=== PATIENT | male | born 1970 | race Caucasian/White ===

== ENCOUNTER 2018-03-04 18:23 | Emergency (ER) | payer MEDICAID ==
[~2018-03-04] VITALS: Ht 177.8 cm; Wt 79.4 kg
--- NOTE | 2018-03-04 18:25 | NUR ---
alberta 89 from home accompanied by [employer] for suicidal ideation with a plan to hang himself, patient is on 5150 DTS. patient is alert but with flight of ideas. Unable to focus on conversation. vitals stable. safety and comfort measures in place. awaiting md orders.
--- NOTE | 2018-03-04 18:55 | NUR ---
roof technician at bedside for blood draw. patient not cooperative in providing urine at this time. will f/u.
[2018-03-04 19:00] LABS: BASOPHILS # (AUTO) 0.1 /CMM (0.0-0.2); BASOPHILS % (AUTO) 1.8 % (0.0-2.0); EOSINOPHILS % (AUTO) 0.1 % (0.0-6.0); HEMATOCRIT 49 % (39-51); HEMOGLOBIN 16.5 g/dL (13.5-17.5); LYMPHOCYTES # (AUTO) 1.1 /CMM (0.8-4.8); LYMPHOCYTES % (AUTO) 17.7 % (20.0-44.0); MEAN CORPUSCULAR HGB CONC 34 g/dl (31.0-36.0); MEAN CORPUSCULAR VOLUME 93 fL (80-96); MONOCYTES # (AUTO) 0.3 /CMM (0.1-1.30); MONOCYTES % (AUTO) 4.7 % (2.0-12.0); NEUTROPHILS # (AUTO) 4.9 /CMM (1.8-8.9); NEUTROPHILS % (AUTO) 75.7 % (43.0-81.0); PLATELET COUNT (AUTO) 181 /CMM (150-450); RDW COEFFICIENT OF VARIATION 12.9 (11.5-15.0); RED BLOOD CELL COUNT(AUTO) 5.31 MIL/uL (4.5-6.0); WHITE BLOOD COUNT (AUTO) 6.4 K/uL (4.3-11.0)
[2018-03-04 19:11] LABS: CALCIUM, SERUM 9.4 mg/dL (8.5-10.1); CREATININE 1.4 mg/dL (0.6-1.3); POTASSIUM 4.2 mmol/L (3.5-5.1)
[2018-03-04 19:17] LABS: ALBUMIN 4.5 g/dL (3.4-5.0); BILIRUBIN,DIRECT 0.2 mg/dL (0.0-0.2); BILIRUBIN,TOTAL 1.1 mg/dL (0.2-1.0); SALICYLATE 1.3 mg/dL (2.8-20.0); TOTAL PROTEIN, SERUM 7.8 g/dL (6.4-8.2)
--- NOTE | 2018-03-04 19:19 | NUR ---
RECIEVED REPORT FROM MER ALEJANDRE FOR MEAGHAN. PT RESTING IN BED WITH BILATERAL RESTRAINT APPLIED PER MD. PT RESTING IN BED WITH NO S/S OF DISTRESS NOTED. WATER,FOOD,AND TOILETTING OFFERED TO PT. WILL CONTINUE TO MONITOR PT. SI PRECAUTIONS IN PLACE.
--- NOTE | 2018-03-04 19:45 | NUR ---
Patient is resting comfortably in bed with eyes closed. Easily aroused. VSS
[2018-03-04] MEDS ORDERED: OLANZAPINE 5 MG TABLET ONE (19:56)
[2018-03-04] MEDS ORDERED: OLANZAPINE 5 MG TABLET PO ONE (20:00)
[2018-03-04 20:32] LABS: APPEARANCE,URINE Slightly Cloudy (CLEAR); BILIRUBIN,URINE Negative (NEGATIVE); BLOOD, URINE Negative Ery/uL (NEGATIVE); COLOR,URINE Yellow (YELLOW); KETONES,URINE 15 (NEGATIVE); LEUKOCYTE ESTERASE ,URINE Negative (NEGATIVE); NITRITE, URINE Negative (NEGATIVE); PROTEIN,URINE Negative (NEGATIVE); UGLUCOSE Negative (NEGATIVE); UROBILINOGEN,URINE 0.2 EU/dL (0.2)
[2018-03-04 20:49] LABS: BACTERIA,URINE Few /HPF (None Seen); HYALINE CASTS, URINE Few /LPF (None Seen); MUCUS,URINE Few /LPF (None Seen); RBC,URINE 0-2 /HPF (0-2); SQUAMOUS EPITHELIAL CELL,UR Few /HPF (None Seen); WBC,URINE 0-2 /HPF (0-3)
--- NOTE | 2018-03-04 21:09 | NUR ---
Patient is resting comfortably in bed with eyes closed. Easily aroused. VSS. PT'S FAMILY BEDSIDE .
[2018-03-04] MEDS ORDERED: LORAZEPAM 1 MG TABLET ONE (22:29)
[2018-03-04] MEDS ORDERED: LORAZEPAM 1 MG TABLET PO ONE (22:30)
--- NOTE | 2018-03-04 22:32 | NUR ---
Lula DEL ANGEL platen press feeder at bedside for eval.
--- NOTE | 2018-03-04 22:56 | NUR ---
PT'S FAMILY NO LONGER BEDSIDE. PT RESTING IN BED WITH NO S/S OF DISTRESS NOTED. WILL CONTINUE TO MONITOR PT FOR SAFETY.
--- NOTE | 2018-03-04 23:17 | NUR ---
DOUG AND OH SHER (PARENTS): HOME: [phone] CELL: [phone] CELL: [phone]
--- NOTE | 2018-03-04 23:23 | NUR ---
Patient is resting comfortably in bed with eyes closed. Easily aroused. VSS. WILL COTNINUE TO MONITOR PT FOR SAFETY
--- NOTE | 2018-03-05 00:02 | NUR ---
Pt accepted to [facility] by Dr Burgess. # for report [phone].
--- NOTE | 2018-03-05 00:14 | NUR ---
SPOKE WITH [facility] FOR S TRANSPORT TRIP#[id number] MINUTES ETA.
--- NOTE | 2018-03-05 00:41 | NUR ---
REPORT GIVEN TO INDUSTRIAL SAFETY AND HEALTH TECHNICIANMER KHAN FOR MEAGHAN.
--- NOTE | 2018-03-05 01:00 | NUR ---
Patient is resting comfortably in bed with eyes closed. Easily aroused. VSS
--- NOTE | 2018-03-05 01:19 | NUR ---
PT'S RESTRAINTS REMOVED PER PSYCHAITRIC EVALUATORS AND MD'S ORDERS
[2018-03-05 02:45] VITALS: BP 145/88
--- NOTE | 2018-03-05 02:49 | NUR ---
REPORT GIVEN TO EMS CREW FOR MEAGHAN. NO S/S OF DISTRESS NOTED UPON TRANSFER.
--- NOTE | 2018-03-05 02:50 | NUR ---
Patient Tranfers to outside Facility Physician: Dr Burgess Location:[facility]
== END 2018-03-05 02:53 ==
LOC: ER 18:25
DX: R45.851 Suicidal ideations (principal); F29 Unspecified psychosis not due to a substance or known physiological condition; F15.10 Other stimulant abuse, uncomplicated; F32.9 Major depressive disorder, single episode, unspecified; D66 Hereditary factor VIII deficiency; F19.10 Other psychoactive substance abuse, uncomplicated; F43.10 Post-traumatic stress disorder, unspecified; F10.10 Alcohol abuse, uncomplicated; Y90.1 Blood alcohol level of 20-39 mg/100 ml; Z98.890 Other specified postprocedural states; Z60.2 Problems related to living alone
CPT/HCPCS: 36415; 71045; 80048; 80076; 80305; 80329; 81001; 85025; 99285; A4606; G0480 ×2; Z7610; 81000-TC

== ENCOUNTER 2018-06-05 09:27 | Inpatient (IN) | payer MEDICAID ==
[~2018-06-05] VITALS: Ht 175.3 cm; Wt 78.5 kg
[~2018-06-05 09:27] MED LIST: BUDE10.2 IH; BUPR300T52 PO; FAMO-131 PO; FINA5TAB11 PO; QUET25TA PO; SILD20TA2 PO; TADA5TAB2 PO; [UNRECOGNIZED DRUG - CODE] IV
--- NOTE | 2018-06-05 09:30 | NUR ---
RN NOTES PT BIB [facility] DUE TO SUICIDAL IDEATION,PT STATES "TRIED TO HANG MYSELF", PT AO X4, NOT IN RESPIRATORY DISTRESS. PT HAS NOTED REDNESS TO NECK AND HAS ELEVATED BP, WILL CONTINUE TO MONITOR.
--- NOTE | 2018-06-05 09:30 | NUR ---
URINAL GIVEN BUT PT UNABLE TO PROVIDE URINE SPECIMEN.
--- NOTE | 2018-06-05 09:35 | NUR ---
DR MORAN AT BEDSIDE FOR EVAL
--- NOTE | 2018-06-05 10:02 | NUR ---
LABS DRAWN AND SENT TO LAB, AWAITING RESULTS
[2018-06-05 10:09] LABS: BASOPHILS % (AUTO) 0.3 % (0.0-2.0); HEMATOCRIT 52 % (39-51); HEMOGLOBIN 17.9 g/dL (13.5-17.5); LYMPHOCYTES # (AUTO) 1.1 /CMM (0.8-4.8); LYMPHOCYTES % (AUTO) 14.6 % (20.0-44.0); MEAN CORPUSCULAR HGB CONC 34 g/dl (31.0-36.0); MEAN CORPUSCULAR VOLUME 95 fL (80-96); MONOCYTES # (AUTO) 0.3 /CMM (0.1-1.30); MONOCYTES % (AUTO) 3.8 % (2.0-12.0); NEUTROPHILS # (AUTO) 6.3 /CMM (1.8-8.9); NEUTROPHILS % (AUTO) 81.3 % (43.0-81.0); PLATELET COUNT (AUTO) 156 /CMM (150-450); RED BLOOD CELL COUNT(AUTO) 5.52 MIL/uL (4.5-6.0); WHITE BLOOD COUNT (AUTO) 7.8 K/uL (4.3-11.0)
[2018-06-05 10:17] LABS: CALCIUM, SERUM 9.4 mg/dL (8.5-10.1); CREATININE 1.4 mg/dL (0.6-1.3); POTASSIUM 4.3 mmol/L (3.5-5.1)
[2018-06-05 10:23] LABS: ALBUMIN 4.7 g/dL (3.4-5.0); BILIRUBIN,DIRECT 0.2 mg/dL (0.0-0.2); BILIRUBIN,TOTAL 0.8 mg/dL (0.2-1.0); SALICYLATE 1.2 mg/dL (2.8-20.0)
[2018-06-05] MEDS ORDERED: IV NS 0.9% 1,000 ML BAG IV ONE (10:30)
[2018-06-05] MEDS ORDERED: IV NS 0.9% 250 ML IV ONE (10:36)
[2018-06-05] MEDS ORDERED: IOHEXOL-300 100 ML VIAL IV ONE (10:36)
[2018-06-05] MEDS ORDERED: CT SWABBABLE VALVE TRANS SET 1 EA INFUS.SET MC ONE (10:36)
--- NOTE | 2018-06-05 10:48 | NUR ---
PT IS WHEELD TO CT SCAN VIA [employer].
--- NOTE | 2018-06-05 11:56 | NUR ---
PT ADMIT TO 306-1 TELE DX SUICIDAL ATTEMPT, R/O NECK SWELLING [id number] MD DONAHUE
--- NOTE | 2018-06-05 12:04 | NUR ---
REPORT GIVEN TO MER MURRAY FOR MEAGHAN, STILL FOR URINE SPECIMEN COLLECTION.
[2018-06-05] MEDS ORDERED: LORAZEPAM INJ 2 MG/ML VIAL IV STA ×2 (12:08→13:02)
[2018-06-05] MEDS ORDERED: LORAZEPAM INJ 2 MG/ML VIAL ONE ×2 (12:12→13:17)
[2018-06-05 12:27] LABS: APPEARANCE,URINE Clear (CLEAR); BILIRUBIN,URINE Negative (NEGATIVE); BLOOD, URINE Negative Ery/uL (NEGATIVE); COLOR,URINE Yellow (YELLOW); KETONES,URINE Trace (NEGATIVE); LEUKOCYTE ESTERASE ,URINE Negative (NEGATIVE); NITRITE, URINE Negative (NEGATIVE); PH,URINE 5.5 (5.0-8.0); PROTEIN,URINE Negative (NEGATIVE); UGLUCOSE Negative (NEGATIVE); UROBILINOGEN,URINE 0.2 EU/dL (0.2)
--- NOTE | 2018-06-05 12:30 | NUR ---
URINE COLLECTED AND SENT TO LAB.
[2018-06-05 12:36] LABS: BACTERIA,URINE None seen /HPF (None Seen); RBC,URINE 0-2 /HPF (0-2); SQUAMOUS EPITHELIAL CELL,UR Rare /HPF (None Seen); WBC,URINE 0-2 /HPF (0-3)
[2018-06-05 12:37] LABS: CALCIUM CARBONATE CRYSTALS,UR Few /HPF (None Seen)
[2018-06-05 14:00] VITALS: BP 156/105
--- NOTE | 2018-06-05 14:30 | NUR ---
Tele/RN - Admission Received patient from ER, alert and oriented x 3-4, denies chest pain or palpitation, stable on room air, tele shows ST. Admitted for Acute Encephalopathy; Suicide Ideation and attempt under the care of Laura Gilliland NP. Patient oriented to room, all belongings sent home. Saline lock on the RAC is patent and intact. Patient refused photo to be taken of skin, noted with redness around the neck. Patient on suicide watch, 1:1 sitter at bedside. Admission orders noted and carried out. Will continue to monitor and intervene as needed. Father at bedside updated on plan of care.
[2018-06-05] MEDS: THIAMINE HCL 100 MG TABLET PO SCH (14:43)
[2018-06-05] MEDS: FOLIC ACID 1 MG TABLET PO SCH (14:43)
[2018-06-05] MEDS: CHLORDIAZEPOXIDE HCL 25 MG CAPSULE PO SCH ×2 (14:43→20:15)
[2018-06-05 16:00] VITALS: BP 159/109
[2018-06-05] MEDS: FAMOTIDINE (20 MG) 20 MG TABLET PO SCH (16:46)
[2018-06-05] MEDS: SILDENAFIL CITRATE 20 MG TABLET PO SCH (16:46)
[2018-06-05] MEDS: Potassium Chloride 20 MEQ in IV D5/ 0.9% NACL 1,000 ML IV PRN (16:47)
--- NOTE | 2018-06-05 18:15 | NUR ---
Tele/RN - Closing notes No significant change in condition noted, ST on the monitor, IVF D5NS with 20 meq KCl at 150 ml/hr infusing well on the right AC with no signs of infiltration. 1:1 sitter at bedside for safety. No seizure activity seen. Fall suicide and seizure precautions maintained. All needs attended and met. Will continue with current medical management.
--- NOTE | 2018-06-05 19:20 | NUR ---
RN OPENING NOTES PT AWAKE AND RESTING IN BED. 1:1 SITTER AT BEDSIDE. PT TELE MONITORED ST RATE IN THE 120S. PT HAS A RIGHT AC #18 RUNNING D5 NS + 20MEQ KCL @150ML/HR. SAFETY PRECAUTIONS IN PLACE, BED IN LOWEST LOCKED POSITION, X2 SIDE RAILS UP AND CALL LIGHT WITHIN REACH. WILL CONTINUE TO MONITOR.
[2018-06-05 20:00] VITALS: BP 148/108
[2018-06-05] MEDS: OLANZAPINE 2.5 MG TABLET PO SCH (20:14)
[2018-06-05 20:53] VITALS: BP 148/108
[2018-06-05] MEDS ORDERED: BUDE10.22 INH (22:01)
[2018-06-05] MEDS ORDERED: ALBU8.5H8 INH (22:01)
[2018-06-06 00:21] VITALS: BP 121/80
[2018-06-06] MEDS: Potassium Chloride 20 MEQ in IV D5/ 0.9% NACL 1,000 ML IV PRN ×2 (04:04→15:15)
[2018-06-06] MEDS: CHLORDIAZEPOXIDE HCL 25 MG CAPSULE PO SCH ×3 (04:04→20:20)
[2018-06-06 04:45] VITALS: BP_SYST 130; BP_DIAS 92; BP_DIAS 97
[2018-06-06] MEDS: LORAZEPAM INJ 2 MG/ML VIAL IV PRN ×2 (05:18→10:17)
--- NOTE | 2018-06-06 05:29 | NUR ---
RN NOTES PT REQUESTED PRN ATIVAN. ADMINISTERED WILL CONTINUE TO MONITOR.
--- NOTE | 2018-06-06 06:25 | NUR ---
RN CLOSING NOTES PT AWAKE AND RESTING IN BED. 1:1 SITTER AT BEDSIDE. PT TELE MONITORED SR RATE IN 80S. PT HAS A RIGHT AC #18 RUNNING D5 NS + 20MEQ KCL @150ML/HR. ALL PATIENT NEEDS MET OVERNIGHT. SAFETY PRECAUTIONS IN PLACE, BED IN LOWEST LOCKED POSITION, X2 SIDE RAILS UP AND CALL LIGHT WITHIN REACH. WILL ENDORSE TO DAY SHIFT NURSE FOR CONTINUITY OF CARE.
[2018-06-06 08:00] VITALS: BP 126/88
--- NOTE | 2018-06-06 08:00 | NUR ---
rn notes received patient in the bed a/o x3, tele sr-80, patient has no acute respiratory distress, anxious, get irritable easily. encouraged to express feelings and concerns. patient refused SI/HI at this time. Scheduled mediation administered, v/s stable,. IV access on right ac area intact infusing D5NS with KCL 20 mEq 150ml/hr intact, no infiltration. Patient ambulatory self care. 1:1 sitter next to the bed for safety, call light within to reach, safety precaution maintained all the time.
[2018-06-06] MEDS: SILDENAFIL CITRATE 20 MG TABLET PO SCH ×2 (08:26→17:08)
[2018-06-06] MEDS: OLANZAPINE 2.5 MG TABLET PO SCH ×3 (08:26→20:19)
[2018-06-06] MEDS: FAMOTIDINE (20 MG) 20 MG TABLET PO SCH ×2 (08:26→17:08)
[2018-06-06] MEDS: FOLIC ACID 1 MG TABLET PO SCH (08:26)
[2018-06-06] MEDS: THIAMINE HCL 100 MG TABLET PO SCH (08:26)
[2018-06-06] MEDS: FINASTERIDE (5 MG) 5 MG TABLET PO SCH (08:26)
[2018-06-06] MEDS ORDERED: FLUTICASONE/VILANTEROL 1 EACH BLST.W.DEV IH SCH (09:00)
--- NOTE | 2018-06-06 10:17 | NUR ---
rn notes patient anxious, get irritable, administered Ativan 1 mg/ml iv push per patient request, v/s taken bp- 126/88, p-87, continued monitoring.
[2018-06-06 11:53] LABS: BASOPHILS % (AUTO) 0.4 % (0.0-2.0); EOSINOPHILS % (AUTO) 0.6 % (0.0-6.0); HEMATOCRIT 46 % (39-51); HEMOGLOBIN 15.4 g/dL (13.5-17.5); LYMPHOCYTES # (AUTO) 1.1 /CMM (0.8-4.8); MEAN CORPUSCULAR HGB CONC 33 g/dl (31.0-36.0); MEAN CORPUSCULAR VOLUME 95 fL (80-96); MONOCYTES # (AUTO) 0.3 /CMM (0.1-1.30); MONOCYTES % (AUTO) 5.1 % (2.0-12.0); NEUTROPHILS # (AUTO) 3.6 /CMM (1.8-8.9); NEUTROPHILS % (AUTO) 71.9 % (43.0-81.0); PLATELET COUNT (AUTO) 124 /CMM (150-450); RED BLOOD CELL COUNT(AUTO) 4.87 MIL/uL (4.5-6.0); WHITE BLOOD COUNT (AUTO) 5.1 K/uL (4.3-11.0)
[2018-06-06 11:58] LABS: CALCIUM, SERUM 8.3 mg/dL (8.5-10.1); CREATININE 1.1 mg/dL (0.6-1.3); PHOSPHORUS 2.7 mg/dL (2.5-4.9); POTASSIUM 3.9 mmol/L (3.5-5.1)
--- NOTE | 2018-06-06 13:00 | NUR ---
RN NOTES PATIENT RESTING IN THE BED , NO ACUTE DISTRESS, 1:1 SITTER NEXT TO THE BED FOR SAFETY, CONTINUED MONITORING.
--- NOTE | 2018-06-06 14:54 | NUR ---
Social service consult requested by JOHANA Gilliland for suicidal attempt. Pt. is a 47 year old male who was admitted to [facility] for a suicidal attempt by hanging himself. Pt. has been to [facility] ER in the past for the same reasons. Pt. is currently on a 5150 hold and has a sitter bedside. SW met with the pt. bedside. Pt. is alert and oriented by 4. Pt's appearance is clean. Pt's mood is congruent. Pt. resides alone at [address] [place] [address]. Pt's emergency contact is his brother Domingo Durbin . Pt. states that he went outside to the [facility] and wrapped a cord around his neck. He states that he jumped " a little bit" which caused the cord to exert some pressure on his neck but he had no loss of consciousness. Pt. stated that he called his dad and told him to go back inside and that he went inside and called police. Pt. has had prior hospitalizations for multiple suicidal attempts in the past. Pt. is an alcoholic and drinks a bottle of vodka per day. Pt. stated he was drinking prior to hanging himself. Pt. also takes amphetamines. Pt. last used yesterday. Pt's last psychiatric admission was three months ago at [facility]. Pt. states he has been sober before and attended [facility] and [facility]. Pt. is currently not feeling suicidal at this time but states, he usually does when he feels a sense of hopelessness. SW inquired with pt. if he will be willing to go voluntary for psychiatric admission. Pt. states, he will think about it. Pt. has a history of Depression. Pt's psychiatrist is Dr. Adan Kearns in [place] but he hasn't been consistent in getting to see him. Pt. is interested in getting SSDI due to his mental illness. SW to give pt. list of Social Security offices in [facility] and referrals to mental health clinics in [facility] prior to discharge. No other social service needs are requested at this time. SW to follow up with pt. again tomorrow.
[2018-06-06 17:00] VITALS: BP 126/77
[2018-06-06] MEDS: PROAIR INH SCH (17:10)
[2018-06-06] MEDS: SYMBICORT INH SCH (17:10)
--- NOTE | 2018-06-06 18:07 | NUR ---
patient was admitted for suicidal attempt by hanging himself, he is currently on 5150 hold. He lives locally alone. He is ambulatory and independent with adl's. He had prior hospitalizations for multiple suicidal attempts in the past. Patient is an alcoholic and drinks a bottle of vodka per day. He stated he was drinking prior to hanging himself. He also takes amphetamines - last used yesterday. His last psychiatric admission was three months ago at [facility]. Patient states he has been sober before and attended [facility] and [facility]. States he is not suicidal at this time but states, he usually does when he feels a sense of hopelessness. metalworker inquired with patient if he will be willing to go voluntary for psychiatric admission. States he will think about it. He has a history of Depression, his psychiatrist is Dr. Adan Kearns in [place] but he hasn't been consistent in getting to see him. Patient interested in getting SSDI due to his mental illness. SW to give pt. list of Social Security offices in [facility] and referrals to mental health clinics in [facility] prior to discharge. No other social service needs are requested at this time. SW to follow up with pt. again tomorrow. Addendum: 06/06/18 at 1807 by KENROY LARES RN Amended: Links added.
--- NOTE | 2018-06-06 18:30 | NUR ---
RN NOTES PATIENT STABLE WALKING AROUND. SCHEDULED MEDICATION ADMINISTERED, PATIENT DENIED SI/HI AT TIS TIME. 1:1 SITTER NEXT TO THE BED FOR SAFETY. ENDORSED ONCOMING NURSE FOR PLAN OF CARE.
--- NOTE | 2018-06-06 19:57 | NUR ---
MS/RN RECEIVE PATIENT AWAKE, ALERT, ORIENTED, COMFORTABLE, NO C/O PAIN, NO DISTRESS NOTED, CALL LIGHT IN REACH. WILL MONITOR.
--- NOTE | 2018-06-06 20:00 | NUR ---
MS/RN PATIENT REFUSED IV FLUID.
[2018-06-06 20:07] VITALS: BP 120/85
--- NOTE | 2018-06-07 02:43 | NUR ---
MS/RN PATIENT IS SLEEPING AT THIS TIME, APPEAR COMFORTABLE, BREATHING EVEN AND UNLABORED, CALL LIGHT IN REACH. WILL CONTINUE TO MONITOR.
[2018-06-07] MEDS: CHLORDIAZEPOXIDE HCL 25 MG CAPSULE PO SCH ×3 (05:21→21:27)
[2018-06-07 06:37] LABS: BASOPHILS % (AUTO) 0.4 % (0.0-2.0); EOSINOPHILS % (AUTO) 1.5 % (0.0-6.0); HEMATOCRIT 45 % (39-51); HEMOGLOBIN 15.1 g/dL (13.5-17.5); LYMPHOCYTES # (AUTO) 1.6 /CMM (0.8-4.8); MEAN CORPUSCULAR HGB CONC 34 g/dl (31.0-36.0); MEAN CORPUSCULAR VOLUME 94 fL (80-96); MONOCYTES # (AUTO) 0.3 /CMM (0.1-1.30); MONOCYTES % (AUTO) 5.4 % (2.0-12.0); NEUTROPHILS # (AUTO) 2.7 /CMM (1.8-8.9); NEUTROPHILS % (AUTO) 58.7 % (43.0-81.0); PLATELET COUNT (AUTO) 107 /CMM (150-450); RED BLOOD CELL COUNT(AUTO) 4.75 MIL/uL (4.5-6.0); WHITE BLOOD COUNT (AUTO) 4.7 K/uL (4.3-11.0)
--- NOTE | 2018-06-07 06:44 | NUR ---
MS/RN PATIENT STILL SLEEPING AT THIS TIME, APPEAR COMFORTABLE, BREATHING EVEN AND UNLABORED, CALL LIGHT IN REACH. ALL NEEDS ATTENDED AT THIS TIME. WILL CONTINUE TO MONITOR.
[2018-06-07 07:05] LABS: CALCIUM, SERUM 8.2 mg/dL (8.5-10.1); MAGNESIUM 1.8 mg/dL (1.8-2.4); PHOSPHORUS 3.3 mg/dL (2.5-4.9); POTASSIUM 3.7 mmol/L (3.5-5.1)
--- NOTE | 2018-06-07 07:21 | NUR ---
MS RN OPENING NOTES RECEIVED PATIENT AWAKE IN BED IN NO ACUTE SIGNS OF DISTRESS. 1:1 SITTER AT BEDSIDE. A/O X4. ABLE TO VERBALIZED NEEDS, NO C/O PAIN OR DISCOMFORTS VOICED AT THIS TIME. DENIES HI/SI. ON ROOM AIR, BREATHING EVEN AND UNLABORED. IV ACCESS ON RFA INTACT AND PATENT, REFUSING IVF OF D5 NS. SAFETY MEASURES IN PLACE. BED IN LOW/LOCKED POSITION WITH SR UP X2. CALL LIGHT IN REACH. WILL CONTINUE TO MONITOR PT ACCORDINGLY.
[2018-06-07 08:00] VITALS: BP 133/55
[2018-06-07] MEDS: OLANZAPINE 2.5 MG TABLET PO SCH ×4 (08:35→21:27)
[2018-06-07] MEDS: FINASTERIDE (5 MG) 5 MG TABLET PO SCH (08:35)
[2018-06-07] MEDS: THIAMINE HCL 100 MG TABLET PO SCH (08:35)
[2018-06-07] MEDS: SILDENAFIL CITRATE 20 MG TABLET PO SCH ×2 (08:36→18:22)
[2018-06-07] MEDS: FAMOTIDINE (20 MG) 20 MG TABLET PO SCH ×3 (08:36→18:22)
[2018-06-07] MEDS: FOLIC ACID 1 MG TABLET PO SCH ×2 (08:36→09:00)
[2018-06-07] MEDS: PROAIR INH SCH ×2 (08:37→18:24)
[2018-06-07] MEDS: SYMBICORT INH SCH ×2 (08:37→18:25)
--- NOTE | 2018-06-07 10:33 | NUR ---
SERINA received a message from JOHANA Sanchez informing SW that pt. is wanting to leave AMA. SERINA and MER Dorado met with pt. bedside. Pt. appears anxious and was sitting on his bed talking on the phone requesting to bring his clothes to the hospital. SERINA inquired with pt. as to why he wants to leave AMA. Pt. stated he was agitated with the doctor and doesn't want to be here anymore. SERINA reiterated with the pt. that he is on a 5150 hold and is not able to leave AMA. SERINA provided emotional support and informed pt. that a psychiatrist will be seeing him today. Pt. stated, " no one told me I am on a hold." SERINA informed the pt. that [employer] placed him on a hold on 06/05/18 when they had brought him to [facility] ED. Pt. seemed to be calmer than earlier. SERINA updated JOHANA Sanchez and Med Surg 3 VARINDER Robb with the aforementioned information.
--- NOTE | 2018-06-07 10:40 | NUR ---
RN NOTES JOHANA DONAHUE CAME TO SEE PT, INFORMED HER THAT PT IS REFUSING HIS IVF BUT DRINKING WELL. PT BECAME AGITATED AFTER JOHANA DONAHUE LEFT HIS ROOM AND VERBALIZED THAT HE WANTS TO GO AMA. INFORMED BY SERINA ALEX AND Airam THAT HE IS ON HOLD 5150 ON 06/05/2018 BY [employer] AND APPEARS TO CALM DOWN AFTER. WILL CONTINUE TO MONITOR
--- NOTE | 2018-06-07 12:14 | NUR ---
RN NOTES PATIENT VISITED BY FEMALE NAMED LAY AND INTRODUCED HERSELF AN EMPLOYEE OF THE PATIENT AND BROUGHT 1 BAG OF CLOTHINGS( 1 PAINT, 1 SHIRT, 1M SWEATER, 1 UNDERWEAR, PAIR OF SOCKS AND 1 PAIR OF SHOES. NO CONTRABAND NOTED. BELONGINGS LIST UPDATED. WILL CONTINUE TO MONITOR.
--- NOTE | 2018-06-07 14:28 | NUR ---
RN NOTES PATIENT WAS PLACED ON 5250 HOLD STARTING TODAY, 06/07/2017. COPY OF NOTICE OF CERTIFICATION GIVEN AND EXPLAINED TO PT. WILL CONTINUE TO MONITOR .
[2018-06-07 16:00] VITALS: BP 127/78
--- NOTE | 2018-06-07 18:55 | NUR ---
MS RN CLOSING NOTES PATIENT IN BED RESTING @ MODERATE HIGH BACKREST POSITION. 1:1 SITTER AT BEDSIDE FOR CLOSE MONITORING. A/O X4. AMBULATORY AND VERBALLY RESPONSIVE, DENIES HI/SI DURING THE DAY. ALL NEEDS AND CARE ATTENDED WELL. ON ROOM AIR, BREATHING EVEN WITH NO SOB NOTED. IV ACCESS ON RFA INTACT AND PATENT, PT REMAINS REFUSING IVF. ALL SAFETY MEASURES KEPT IN PLACE. BED IN LOW/LOCKED POSITION WITH SR UP X2. CALL LIGHT IN REACH. WILL ENDORSE TO LEARNING ANALYST NURSE FOR MEAGHAN.
--- NOTE | 2018-06-07 19:25 | NUR ---
RN NOTES PATIENT SUPPOSED TO TAKE HIS ZYPREXA 2.5 TAB AT 1800, REVATIO 20 MG TAB AND PEPCID 20MG TAB AT 1700 AFTER WAKING UP BUT REFUSED TO TAKE IT UNTIL HE IS FULLY AWAKE. MEDS SCANNED THAT HE TOOK IT ALREADY BUT I UNDONE IT BECAUSE PT DOESN'T WANT TO WAKE UP YET TO TAKE HIS MEDS. FATHER AT BEDSIDE AND MADE AWARE. THE THREE MEDS WAS RETURNED AND WITNESSED BY MER ROUSE. ENDOSED TO NIGHT NURSE SAKINA.
--- NOTE | 2018-06-07 19:37 | NUR ---
MS/RN RECEIVE PATIENT APPEAR SLEEPING, APPEAR COMFORTABLE, NO DISTRESS NOTED, SITTER AT BEDSIDE. WILL MONITOR.
[2018-06-07 20:00] VITALS: BP 122/72
--- NOTE | 2018-06-08 00:46 | NUR ---
MS/RN PATIENT IS SLEEPING AT THIS TIME, APPEAR COMFORTABLE, NO SIGNS OF DISTRESS NOTED, CALL LIGHT IN REACH. WILL CONTINUE TO MONITOR.
[2018-06-08] MEDS: CHLORDIAZEPOXIDE HCL 25 MG CAPSULE PO SCH ×3 (05:17→21:20)
--- NOTE | 2018-06-08 07:06 | NUR ---
MS/RN PATIENT IS AWAKE, ALERT ORIENTED, CALM AND COMFORTABLE, NO SIGNS OF DISTRESS NOTE, NO UNTOWARD BEHAVIOR PROBLEM NOTED THE WHOLE SHIFT, ALL NEEDS ATTENDED AT THIS TIME, WILL CONTINUE TO MONITOR.
--- NOTE | 2018-06-08 08:00 | NUR ---
MS/RN AM NOTES PATIENT COMFORTABLY SLEEPING BUT AROUSABLE, REFUSED VITAL SIGNS TO BE TAKEN.REFUSED TO BE BOTHERED.DENIES DISTRESS., REFUSED IVF INSPITE OF EXPLAINING ITS RISKS AND BENEFITS.INFORMED DR MONTESINOS WITH ORDERS TO DC IVF SINCE PT DRINKS FINE.NO SI/HI.WITH 1:1 SITTER.WILL CONTINUE TO MONITOR.
[2018-06-08] MEDS: FAMOTIDINE (20 MG) 20 MG TABLET PO SCH ×3 (08:20→17:20)
[2018-06-08] MEDS: FOLIC ACID 1 MG TABLET PO SCH ×2 (08:20→09:00)
[2018-06-08] MEDS: OLANZAPINE 2.5 MG TABLET PO SCH ×5 (08:20→21:20)
[2018-06-08] MEDS: THIAMINE HCL 100 MG TABLET PO SCH ×2 (08:20→09:00)
[2018-06-08] MEDS: FINASTERIDE (5 MG) 5 MG TABLET PO SCH ×2 (08:20→09:00)
[2018-06-08] MEDS: SILDENAFIL CITRATE 20 MG TABLET PO SCH ×3 (08:24→17:20)
[2018-06-08] MEDS: SYMBICORT INH SCH ×2 (08:29→17:00)
[2018-06-08] MEDS: PROAIR INH SCH ×2 (08:30→17:00)
--- NOTE | 2018-06-08 13:46 | NUR ---
PT WOKE UP AND ATE HIS LUNCH 100%.REFUSED TO TAKE HIS AM PILLS AND JUST WANTS TO GO HOME.PT IS ON HOLD.UNCOOPERATIVE AND NON COMPLIANT.WITH 1:1 SITTER AT BEDSIDE.
--- NOTE | 2018-06-08 14:00 | NUR ---
PT REFUSED V/S.PT ANSWERS WITH SARCASM AND RAISES HIS VOICE FOR SIMPLE QUESTIONS.WANTS TO BE ADDRESSED NicciCHRISTOS.SLAMS THE DOOR OF HIS RESTROOM.
[2018-06-08 16:00] VITALS: BP 113/68
--- NOTE | 2018-06-08 17:27 | NUR ---
PT TOOK HIS PM ORAL MEDS EXCEPT THE INHALERS.PT CALM AND COOPERATIVE AT THIS TIME.
--- NOTE | 2018-06-08 19:36 | NUR ---
MS RN NOTE RECEIVED PT IN STABLE CONDITON. PATIENT COMFORTABLY SLEEPING BUT AROUSABLE. SO SIGNS OF SOB OR DISTRESS. NO SI/HI.WITH 1:1 SITTER.WILL CONTINUE TO MONITOR. SAFETY MEASURES IN PLACE: BED LOW AND LOCKED POSITION, UPPER BED RAILS UP X2 AND CALL LIGHT WITHIN REACH. WILL CONT TO MONITOR.
[2018-06-08 19:51] VITALS: BP 114/71
[2018-06-08 20:00] VITALS: BP 114/71
[2018-06-09] MEDS: CHLORDIAZEPOXIDE HCL 25 MG CAPSULE PO SCH ×4 (05:26→20:07)
--- NOTE | 2018-06-09 06:17 | NUR ---
MS RN NOTE PT IN STABLE CONDITON. PATIENT COMFORTABLY SLEEPING BUT AROUSABLE. SO SIGNS OF SOB OR DISTRESS. NO SI/HI.WITH 1:[address] SITTER. SAFETY MEASURES IN PLACE: BED LOW AND LOCKED POSITION, UPPER BED RAILS UP X2 AND CALL LIGHT WITHIN REACH. WILL CONT TO MONITOR AND ENDORSE TO NEXT SHIFT.
[2018-06-09 08:00] VITALS: BP 117/69
--- NOTE | 2018-06-09 08:00 | NUR ---
MS RN OPENING NOTE PATIENT COMFORTABLY SLEEPING AT THIS TIME WITH BED LOCKED IN LOWEST POSITION WITH SIDERAILS UP x2. NO FACIAL GRIMACING NOTED FOR PAIN. NO SOB OR DISTRESS NOTED ON ROOM AIR TOLERATING WELL. ALERT AND ORIENTED X4. BRP. IV ON RIGHT FOREARM INTACT AND PATENT NO REDNESS OR SWELLING NOTED WITH NO IV FLUIDS. AWAITING FOR PSYCH EVAL AND FOR PSYCH MD TO CALL PATIENT'S MOTHER ONCE AVAILABLE. ON 5250 HOLD EXPIRES 06/21/18. PER BLOW MOULDING MACHINE OPERATOR NURSE FOR PATIENT NOT TO BE DISTURBED. WILL CONTINUE TO MONITOR THROUGHOUT SHIFT
--- NOTE | 2018-06-09 08:20 | NUR ---
MS RN NOTE PER DR. HILL PATIENT HAS DISCHARGE ORDER AND TO NOTIFY CLAM TREADER FOR TRANSFER TO [facility]. CHARGE NURSE AWARE
--- NOTE | 2018-06-09 08:25 | NUR ---
MS RN NOTE NOTIFIED [facility] PARCEL POST CLERK-HONEY THAT PATIENT IS AWAITING PSYCH EVAL. DR HINTON TO BE NOTIFIED TO SEE PATIENT
[2018-06-09] MEDS: FAMOTIDINE (20 MG) 20 MG TABLET PO SCH ×2 (08:42→17:00)
[2018-06-09] MEDS: THIAMINE HCL 100 MG TABLET PO SCH (08:42)
[2018-06-09] MEDS: FINASTERIDE (5 MG) 5 MG TABLET PO SCH (08:42)
[2018-06-09] MEDS: SILDENAFIL CITRATE 20 MG TABLET PO SCH ×2 (08:42→17:00)
[2018-06-09] MEDS: OLANZAPINE 2.5 MG TABLET PO SCH ×5 (08:42→20:07)
[2018-06-09] MEDS: FOLIC ACID 1 MG TABLET PO SCH (08:43)
[2018-06-09] MEDS: PROAIR INH SCH ×2 (08:44→17:00)
[2018-06-09] MEDS: SYMBICORT INH SCH ×2 (08:44→17:00)
--- NOTE | 2018-06-09 12:48 | NUR ---
ms rn noteupone giving medications, patient refused. then patient changed his mind and said " well i dont want the doctor thinking i dont take the medications, just give them to me". medication given to patient. will inform md
[2018-06-09 16:00] VITALS: BP 112/66
--- NOTE | 2018-06-09 17:17 | NUR ---
MS RN NOTE PATIENT REFUSED MEDICATION AT THIS TIME. PATIENT STATED " I DONT WANT TO BE BOTHERED WHEN IM SLEEPING"
--- NOTE | 2018-06-09 18:34 | NUR ---
MS RN CLOSING NOTE PATIENT COMFORTABLE IN BED AT THIS TIME WITH BED LOCKED IN LOWEST POSITION WITH SIDERAILS UP x2. NO FACIAL GRIMACING NOTED FOR PAIN. NO SOB OR DISTRESS NOTED ON ROOM AIR TOLERATING WELL. ALERT AND ORIENTED X4. BRP. CALL LIGHT WITHIN REACH AT ALL TIMES. IV ON RIGHT FOREARM INTACT AND PATENT NO REDNESS OR SWELLING NOTED WITH NO IV FLUIDS. ALL DUE MEDICATIONS GIVEN ORDERED-PATIENT REFUSED AFTERNOON MEDICATIONS. ON 5250 HOLD EXPIRES 06/21/18. PATIENT STATED " I DONT WANT TO BE DISTURBED WHILE SLEEPING, I JUST WANT TO GO HOME" WILL ENDORSE TO HOT PIPE GAUGER NURSE FOR MEAGHAN
--- NOTE | 2018-06-09 19:31 | NUR ---
MS RN OPENING NOTES: RECEIVED PT ON ROOM AIR AND IS TOLERATING WELL. PT ASLEEP AT HIS TIME. NO SOB OR S/S OF DISTRESS NOTED AT THIS TIME. SITTER AT BEDSIDE. IV REMAINS INTACT. CURRENTLY H/L. BED KEPT IN LOW ,LOCKED POSITION, AND SIDE RAILS X 2UP. WILL CONTINUE TO MONITOR PT.
--- NOTE | 2018-06-09 19:53 | NUR ---
MS RN NOTES: PT REQUESTING NOT TO HAVE ANY PHONE CALLS FROM FAMILY TRANSFERRED TO HIM FOR EVENING. PT WOULD LIKE PRIVACY.
[2018-06-09 20:00] VITALS: BP 123/73
--- NOTE | 2018-06-09 20:09 | NUR ---
MS RN NOTES: NO SI IDEATIONS AT THIS TIME. PT GIVEN MARINA CRACKERS AND CRANBERRY JUICE REQUESTED.
--- NOTE | 2018-06-09 20:16 | NUR ---
MS RN CLOSING NOTES: ALL NEEDS WERE ATTENDED AND ANTICIPATED FOR. PT IN STABLE CONDITION. ENDORSED TO ELVIN DEL ANGEL FOR MEAGHAN.
[2018-06-10] MEDS: CHLORDIAZEPOXIDE HCL 25 MG CAPSULE PO SCH ×3 (05:13→20:52)
--- NOTE | 2018-06-10 06:22 | NUR ---
MS RN NOTES PT SLEEPING. EASILY AROUSABLE. NOT IN ANY DISTRESS. NO SOB NOTED. DENIES ANY PAIN OR DISCOMFORT AT THIS TIME. MONITORED ACCORDINGLY FOR BEHAVIOR AND SAFETY. SLEPT FOR 8 HRS. CALL LIGHT WITHIN REACH. BED IN LOWEST POSITION. SR UP X 3 WITH BED ALARM ON FOR SAFETY. WITH SITTER AT BEDSIDE. WILL ENDORSE TO NEXT SHIFT.
--- NOTE | 2018-06-10 07:42 | NUR ---
MS RN OPENING NOTE RECEIVED PATIENT ASLEEP IN BED WITH SIDERAILS UP x3 FOR SAFETY. NO FACIAL GRIMACING NOTED FOR PAIN. NO SOB OR DISTRESS NOTED AT THIS TIME ON ROOM AIR TOLERATING WELL. CALL LIGHT WITHIN REACH. IV INTACT AND PATENT ON RIGHT FOREARM NO IV FLUIDS AT THIS TIME. AWAITING PSYCH PLACEMENT. WILL CONTINUE TO MONITOR THROUGHOUT SHIFT
[2018-06-10 08:00] VITALS: BP 119/80
--- NOTE | 2018-06-10 09:30 | NUR ---
MS RN NOTE PATIENT'S HOME SERVICE CONSULTANT AT BEDSIDE AT THIS TIME LOOKING FOR PATIENTS HOME [place]HARI. INFORM HOME SERVICE CONSULTANT THAT ANY BELONGINGS OF PATIENT WERE SENT HOME WITH FAMILY
[2018-06-10] MEDS: FINASTERIDE (5 MG) 5 MG TABLET PO SCH (10:42)
[2018-06-10] MEDS: OLANZAPINE 2.5 MG TABLET PO SCH ×4 (10:42→20:51)
[2018-06-10] MEDS: THIAMINE HCL 100 MG TABLET PO SCH (10:42)
[2018-06-10] MEDS: FOLIC ACID 1 MG TABLET PO SCH (10:42)
[2018-06-10] MEDS: FAMOTIDINE (20 MG) 20 MG TABLET PO SCH ×2 (10:42→17:00)
[2018-06-10] MEDS: SILDENAFIL CITRATE 20 MG TABLET PO SCH ×2 (10:42→17:00)
--- NOTE | 2018-06-10 10:42 | NUR ---
MS RN NOTE PATIENT DIDNT WANT TO BE BOTHERED EARLIER THIS MORNING. MORNING MEDICATIONS NOW GIVEN
[2018-06-10] MEDS: SYMBICORT INH SCH ×2 (10:43→17:00)
[2018-06-10] MEDS: PROAIR INH SCH ×2 (10:43→17:00)
--- NOTE | 2018-06-10 11:26 | NUR ---
SERINA contacted Intake for [facility] and spoke to the regulatory compliance coordinator who informed SERINA they should have bed available after 3PM. She requested for SERINA to fax clinicals. SER[facility] . SERINA also gave copy of clinicals to Luis Miguel to fax to central intake for psychiatric placement. Addendum: 06/10/18 at 1431 by ISAI SMALLS SERINA received a call back from Rishi in intake stating that they will not be able to accept pt. until a PC hearing is held.
--- NOTE | 2018-06-10 13:15 | NUR ---
MS RN NOTE 1:1 KINSEY INFORMED ME THAT PATIENT WAS GRABBING ITEMS OUT OF BAG. HE SAW HIM WITH PAPER TOWELS AROUND HIS WRIST, I WENT TO ASSESS PATIENT WHEN I NOTICED HE WAS GIVING HIMSELF MEDICATION. I EXPLAINED TO HIM THAT HE CANNOT INJECT MEDICATION TO HIMSELF WHILE IN THE HOSPITAL AND WHILE BEING ON 5250 HOLD. PATIENT THEN BEGAN TO GET AGITATED STATING " I HAVE RIGHTS HERE ARE MY DOCUMENTS YOU CAN LOOK AT THEM AND I HAVE THE RIGHT TO GIVE MYSELF MY OWN DAMN MEDICATION" I INFORMED OUR CHARGE NURSE WHERE SHE CAME INTO THE ROOM AND STARTED TALKING TO THE PATIENT. MR. SHER THEN BEGAN YELLING AND SHOUTING AT MYSELF AND CHARGE NURSE IN REGARDS TO HIS CARE, NOT HAVING A PRIVATE ROOM, AND STATING " THE PSYCHIATRIST DIDNT TALK TO ME IN PRIVATE OR EVEN SPEAK TO ME" WE EXPLAINED THAT THE PSYCH MD SPOKE WITH PATIENT REGARDING HOLD. INFORMED DR ALMENDAREZ AWAITING TO HEAR CALL BACK
--- NOTE | 2018-06-10 13:31 | NUR ---
SERINA spoke to Dr. Jeffries who informed SERINA that [facility] does not take pt's who have attempted suicide by hanging themselves.
[2018-06-10] MEDS ORDERED: OLANZAPINE 10 MG VIAL IM ONE (14:00)
--- NOTE | 2018-06-10 14:10 | NUR ---
MS RN NOTE PER ERICKSON TO GIVE ONE TIME ORDER OF ZYPREXA 10 MG IM FOR AGITATION. ORDER NOTED AND CARRIED OUT
--- NOTE | 2018-06-10 14:28 | NUR ---
SERINA met with pt's guidance secretary(pt's calls her a friend) Leo who informed SW that she is his guidance secretary and has been for the past three years. Leo informed SW that pt. called her asking him to inform the staff that " it is safe for him to go home." Leo informed SW that she informed pt. she is not able to do that. She contacted pt's father Domingo who is out of town and will see the pt. when he is back in . A. SERINA gave Leo her contact information and requested her to call if she has any concerns or questions.
--- NOTE | 2018-06-10 15:17 | NUR ---
SERINA received a call from [facility] VARINDER Lozano informing that pt's PC hearing is held for tomorrow at 9AM. SERINA informed VARINDER Murry of PC hearing. VARINDER Murry informed she will send pt. tomorrow to [facility] accompanied with a nurse and security. VARINDER Murry also gave contact number for both parents Addendum: 06/10/18 at 1541 by ISAI SMALLS Mother Marielena Durbin cellphone and is available by text. Jae, pt's father . Both parents are in [place] for two months but are available by phone or email. Mother's email is and father's email is .
--- NOTE | 2018-06-10 17:16 | NUR ---
ms rn note incident report done for patient Unique Id: [id number]
--- NOTE | 2018-06-10 18:11 | NUR ---
MS RN NOTE PATIENT REFUSED 1700 MEDS.
--- NOTE | 2018-06-10 18:44 | NUR ---
MS RN CLOSING NOTE PATIENT RESTING COMFORTABLY AT THIS TIME IN BED LOCKED IN LOWEST POSITION WITH SIDERAILS UP x2 FOR SAFETY. 1:1 SITTR AT BEDSIDE FOR SAFETY. ALL DUE MEDICATIONS GIVEN ORDERED. ALL NURSING CARE NEEDS ATTENDED TO. NO IV ACCESS PATIENT REMOVED IV. NO FACIAL GRIMACING NOTED FOR PAIN. NO SOB OR DISTRESS NOTED ON ROOM AIR TOLERATING WELL. CALL LIGHT WITHIN REACH AT ALL TIMES. WILL ENDORSE TO DISTRICT MANAGER NURSE FOR MEAGHAN
--- NOTE | 2018-06-10 19:30 | NUR ---
recieving notes: asleep liying on his side, reap evemn and unlabored. noted when i left the room he got oob and ambulated quickly to the bathroom, noted steady on his legs. sitter at the bed side. stated he had a BM. noted he ate 100% of his dinner. He asked me what time he was to see the Accounting Consultant. Answered him, I was informed that tomorrow you would see the Accounting Consultant only the date was given me, no time. He did ask me twice. Same answer given. toook his night medication w/o problems.
[2018-06-10 20:35] VITALS: BP 125/83
[2018-06-11] MEDS: CHLORDIAZEPOXIDE HCL 25 MG CAPSULE PO SCH ×4 (04:40→20:03)
--- NOTE | 2018-06-11 06:40 | NUR ---
ENDING NOTES: SLEPT 9 HOURS OF THIS 12 HOUR SHIFT. CHILDS. AT TIMES HE WILL SAY THANKYOU, AND THEN AT TIMES HE'LL TELL YOU HE WANTS NOTHING AND GET OUT, AND i JUST WANT TO GET OUT OF HERE, KNOW ONE TOLD ME i'D BE ON A HOLD. AMBULATES TO THE BATHROOM AND NOTED HIS MOVEMENTS ARE FAST AND ABRUPT. REFUSED HIS AM LIBRIUM DOSE. SPEECH CLEAR. NO ATTEMPT TO LEAVE OR HARM SELF THIS 12 HOURS. SITTER AT THE BEDSIDE THIS 12 HOURS
--- NOTE | 2018-06-11 07:17 | NUR ---
MS RN OPENING NOTE RECEIVED PATIENT IN BED. SLEEPING, EASILY AROUSED WITH VERBAL STIMULI. ORIENTED X4. ON ROOM AIR TOLERATING WELL. IN NO APPARENT DISTRESS OR DISCOMFORT AT THIS TIME. RESPIRATIONS EVEN AND UNLABORED. DENIES PAIN AND SOB. PATIENT IS AGITATED AND CHILDS, GETS UNCOOPERATIVE AT TIMES. PATIENT IS ON 5250 HOLD, EXPECTED TO HAVE A HEARING THIS MORNING. NO IV ACCESS IN PLACE CURRENTLY. 1:1 SITTER AT BEDSIDE. PATIENT IS CLEAN AND COMFORTABLE. ALL NEEDS ATTENDED. SAFETY MEASURE SIN PLACE, BED IN LOW LOCKED POSITION SIDE RAILS UP X2, CALL LIGHT WITHIN EASY REACH. WILL CONTINUE TO MONITOR.
[2018-06-11 08:00] VITALS: BP 118/70
[2018-06-11] MEDS: THIAMINE HCL 100 MG TABLET PO SCH (08:38)
[2018-06-11] MEDS: FOLIC ACID 1 MG TABLET PO SCH (08:38)
[2018-06-11] MEDS: FAMOTIDINE (20 MG) 20 MG TABLET PO SCH ×2 (08:38→16:18)
[2018-06-11] MEDS: FINASTERIDE (5 MG) 5 MG TABLET PO SCH (08:38)
[2018-06-11] MEDS: SILDENAFIL CITRATE 20 MG TABLET PO SCH ×2 (08:38→16:18)
[2018-06-11] MEDS: OLANZAPINE 2.5 MG TABLET PO SCH (08:38)
[2018-06-11] MEDS: PROAIR INH SCH ×2 (08:44→16:19)
[2018-06-11] MEDS: SYMBICORT INH SCH ×2 (08:44→16:19)
[2018-06-11 10:28] VITALS: BP 118/70
[2018-06-11] MEDS: OLANZAPINE 5 MG TABLET PO SCH ×2 (13:19→16:18)
[2018-06-11 16:00] VITALS: BP 122/67
[2018-06-11] MEDS ORDERED: OLANZAPINE 5 MG TABLET PO PRN (17:00)
--- NOTE | 2018-06-11 18:09 | NUR ---
MS RN CLOSING NOTE PATIENT IN BED. SLEEPING, EASILY AROUSED WITH VERBAL STIMULI. ORIENTED X4. ON ROOM AIR TOLERATING WELL. IN NO APPARENT DISTRESS OR DISCOMFORT AT THIS TIME. RESPIRATIONS EVEN AND UNLABORED. DENIES PAIN AND SOB. PATIENT IS AGITATED AND CHILDS, GETS UNCOOPERATIVE AT TIMES. PATIENT IS ON 5250 HOLD. NO IV ACCESS IN PLACE CURRENTLY. 1:1 SITTER AT BEDSIDE FOR SAFETY, DENIES SUICIDAL IDEATIONS AT THIS TIME. PATIENT IS CLEAN AND COMFORTABLE. ALL NEEDS ATTENDED. ALL DUE MEDICATIONS GIVEN, SAFETY MEASURES IN PLACE, BED IN LOW LOCKED POSITION SIDE RAILS UP X2, CALL LIGHT WITHIN EASY REACH, WILL ENDORSE TO PM NURSE FOR MEAGHAN.
--- NOTE | 2018-06-11 19:30 | NUR ---
MS RN NOTE RECEIVED PT IN STABLE CONDITION. A&O X4. NO SIGNS OF SOB OR DISTRESS. 1:1 SITTER AT BEDSIDE. SO SIGNS OF SI. SAFETY PRECAUTIONS IN PLACE: BED LOW, LOCKED, UPPER BED RAILS UP X2 AND CALL LIGHT WITHIN REACH. WILL CONT. TO MONITOR.
[2018-06-11 19:54] VITALS: BP 126/72
[2018-06-11] MEDS: LORAZEPAM INJ 2 MG/ML VIAL IV PRN (21:27)
--- NOTE | 2018-06-11 21:27 | NUR ---
MS RN NOTE PRN ATIVAN 1 MG IV GIVEN FOR RESTLESSNESS REQUESTED BY PT. SIDE EFFECTS VERBALIZED TO PT. WITH UNDERSTANDING OF PT. PT. DOES NOT HAVE AN IV LINE AND IS VERBALIZING THAT HE WANTS A NEW LINE Q2H WHEN HE WANTS THE ATIVAN IV. 1:1 SITTER AT BEDSIDE. WILL CONT TO MONITOR.
--- NOTE | 2018-06-11 22:56 | NUR ---
MS DEL ANGEL NOTE PRN ZYPREXA 5 MG GIVEN FOR ANXIETY M/B INABILITY TO STAY STILL. WILL CONT. TO MONITOR. Addendum: 06/11/18 at 2301 by JAYDON PATEL RN ZYPREXA GIVEN AT 2115
[2018-06-12] MEDS: LORAZEPAM INJ 2 MG/ML VIAL IV PRN (03:16)
--- NOTE | 2018-06-12 03:16 | NUR ---
MS RN NOTE PRN ATIVAN 1 MG IV GIVEN TO PT FOR ANXIETY. NEW LINE STARTED, MEDICATION GIVEN AND LINE DISCONTINUED. PT. AWARE OF RISKS AND BENEFITS. VERBALIZED UNDERSTANDING. 1:1 SITTER AT BEDSIDE. WILL CONT TO MONITOR.
[2018-06-12] MEDS: CHLORDIAZEPOXIDE HCL 25 MG CAPSULE PO SCH ×2 (05:52→12:59)
--- NOTE | 2018-06-12 06:16 | NUR ---
MS RN NOTE PT IN STABLE CONDITION. A&O X4. NO SIGNS OF SOB OR DISTRESS. 1:1 SITTER AT BEDSIDE. CURRENTLY RESTING IN BED, EASY TO WAKE WHEN NAME IS CALLED. SO SIGNS OF SI. SAFETY PRECAUTIONS IN PLACE: BED LOW, LOCKED, UPPER BED RAILS UP X2 AND CALL LIGHT WITHIN REACH. WILL CONT. TO MONITOR AND ENDORSE TO NEXT SHIFT FOR CONT. OF CARE.
--- NOTE | 2018-06-12 07:46 | NUR ---
MS RN OPENING NOTE RECEIVED PATIENT IN BED. SLEEPING, EASILY AROUSED WITH VERBAL STIMULI. ORIENTED X4. ON ROOM AIR TOLERATING WELL. IN NO APPARENT DISTRESS OR DISCOMFORT AT THIS TIME. RESPIRATIONS EVEN AND UNLABORED. DENIES PAIN AND SOB. PATIENT IS AGITATED AND CHILDS, GETS UNCOOPERATIVE AT TIMES. PATIENT IS ON 5250 HOLD, NO IV ACCESS IN PLACE CURRENTLY. 1:1 SITTER AT BEDSIDE. PATIENT IS CLEAN AND COMFORTABLE. ALL NEEDS ATTENDED. SAFETY MEASURE SIN PLACE, BED IN LOW LOCKED POSITION SIDE RAILS UP X2, CALL LIGHT WITHIN EASY REACH. WILL CONTINUE TO MONITOR.
[2018-06-12 08:00] VITALS: BP 138/99
[2018-06-12] MEDS: PROAIR INH SCH (09:23)
[2018-06-12] MEDS: OLANZAPINE 5 MG TABLET PO SCH ×2 (09:23→12:59)
[2018-06-12] MEDS: SYMBICORT INH SCH (09:23)
[2018-06-12] MEDS: FOLIC ACID 1 MG TABLET PO SCH (09:23)
[2018-06-12] MEDS: FAMOTIDINE (20 MG) 20 MG TABLET PO SCH (09:23)
[2018-06-12] MEDS: THIAMINE HCL 100 MG TABLET PO SCH (09:23)
[2018-06-12] MEDS: FINASTERIDE (5 MG) 5 MG TABLET PO SCH (09:23)
[2018-06-12] MEDS: SILDENAFIL CITRATE 20 MG TABLET PO SCH (09:23)
--- NOTE | 2018-06-12 10:55 | NUR ---
Dr. Ibanez discussed with SERINA the discontinuation of the 5250 hold, however prior to discontinuation of the hold, pt. will need to have a psychiatrist appt. scheduled. SERINA met with pt. bedside. Pt. is alert and oriented x 4. Pt. appears eager to leave the hospital. Pt. is denying suicidal aSW informed pt. that prior to discharge, Dr. Ibanez wants pt. to schedule an appointment with his psychiatrist. Pt. with SW present bedside called his psychiatrist Dr. Adan Hardy and scheduled at appointment for tomorrow, 06/13/18 at 11:45AM. Dr. Adan Hardy's office is located at [address] [place] [address]. SERINA inquired with pt. if his friend will be picking him up or will he need a taxi. Pt. states he can walk to his residence located at [facility], in [place]. SERINA contacted pt's friend Ezra to inquire if pt. had called her today to pick him up when discharged. Ezra informed SERINA that pt. 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 Addendum: 06/12/18 at 1116 by ISAI SMALLS Correction: Pt. is denying suicidal and homicidal ideations at this time.
--- NOTE | 2018-06-12 11:30 | NUR ---
received call from dr. Beaver to d/c hold and pt. will f/u with his psych tomorrow at noon.
--- NOTE | 2018-06-12 11:56 | NUR ---
MS RN NOTE CALLED PATIENT'S PREFERRED PHARMACY [facility] AT [phone]. PHARMACY INFORMATION PROVIDED BY THE PATIENT. PER DR. ALMENDAREZ'S ORDER, TELEPHONE PRESCRIPTION GIVEN TO PHARMACY FOR ZYPREXA 5MG PO TID, 2 TABLETS ONLY WITHOUT REFILLS. 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 EDUCATION PROVIDED REGARDING MEDICATION AND HOW TO TAKE IT. PATIENT VERBALIZED UNDERSTANDING AT THIS TIME.
--- NOTE | 2018-06-12 14:30 | NUR ---
REPORTED DR. ARGUELLES THAT DR. ALMENDAREZ DISCONTINUED PATIENT'S [address] ARGUELLES PATIENT IS OK TO GO HOME AT THIS TIME. WILL CARRY OUT ORDERS.
--- NOTE | 2018-06-12 15:00 | NUR ---
MS WAITER/WAITRESS CAPTAIN NOTE RECEIVED ORDER FOR DISCHARGE. PATIENT IS BEING DISCHARGED HOME TO [facility]. 5250 HOLD RELEASED BY AT THIS TIME. PATIENT IS STABLE, VITAL SIGNS STABLE. ALERT ORIENTED X4. ON ROOM AIR, TOLERATING WELL. IN NO APPARENT DISTRESS OR DISCOMFORT AT THIS TIME. RESPIRATIONS EVEN AND UNLABORED. DENIES PAIN AND SOB. PATIENT DENIES SUICIDAL IDEATIONS. DISCHARGE PREPARED VIA EXITCARE, EDUCATIONAL MATERIAL PROVIDED REGARDING DISEASE PROCESS, MEDICATIONS, DISCHARGE INSTRUCTION PROVIDED REGARDING FOLLOW UP CARE, NEW AND EXISTING MEDICATIONS. PATIENT HAS SCHEDULED APPOINTMENT WITH HIS PSYCHIATRIST ON 06/13/18 AT 1145. 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 PATIENT IS AWARE AND ABLE TO FOLLOW UP AFTER DISCHARGE. PATIENT REFUSED VACCINATIONS. REFUSED SKIN ASSESSMENT. NO IV SITE PRESENT. PATIENT'S HOME MEDICATIONS PICKED UP FROM PHARMACY AND GIVEN BACK TO PATIENT, ALL VALUABLE CHECKED AND ACCOUNTED FOR. DISCHARGE PAPERWORK SIGNED BY THE PATIENT, COPIES MADE PLACED IN CHART. IS BAND REMOVED. PATIENT STATED HE IS GOING TO WALK HOME, LEFT THE UNIT ACCOMPANIED BY MENG SINGH AT 1500
== END 2018-06-12 14:30 | disposition home or self-care (01) | DRG 775 ==
LOC: ER 09:30 → TELE 11:50 → MED 06-06 10:28
PROVIDERS: ADMIT Nurse Practitioner Acute Care; ATTEND Student in an Organized Health Care Education/Training Program
DX: F10.231 Alcohol dependence with withdrawal delirium (principal); F10.221 Alcohol dependence with intoxication delirium; G92 Toxic encephalopathy; I27.0 Primary pulmonary hypertension; D66 Hereditary factor VIII deficiency; N17.9 Acute kidney failure, unspecified; T14.91XA Suicide attempt, initial encounter; F33.3 Major depressive disorder, recurrent, severe with psychotic symptoms; F29 Unspecified psychosis not due to a substance or known physiological condition; F43.10 Post-traumatic stress disorder, unspecified; X83.8XXA Intentional self-harm by other specified means, initial encounter; Y92.008 Other place in unspecified non-institutional (private) residence as the place of occurrence of the external cause; N40.0 Benign prostatic hyperplasia without lower urinary tract symptoms; F19.10 Other psychoactive substance abuse, uncomplicated; F41.9 Anxiety disorder, unspecified; Z91.14 Patient's other noncompliance with medication regimen; Y93.89 Activity, other specified; F10.229 Alcohol dependence with intoxication, unspecified; T51.0X1A Toxic effect of ethanol, accidental (unintentional), initial encounter; Y90.4 Blood alcohol level of 80-99 mg/100 ml
CPT/HCPCS: 36415; 70491-TC; 80048-TC; 80061-TC; 80076-TC; 80305; 81000-TC; 83735-TC; 84100-TC; 85025-TC; 85240; 85730-TC; 87081-TC; G0378; G0480; J2060; J3480; J3490; J7030; J7042; J7050; Q9967